=== PATIENT | male | born 1995 | race Caucasian/White ===

== ENCOUNTER 2020-01-03 22:01 | Emergency (ER) | payer BC ==
[2020-01-03 22:08] VITALS: TEMP 98.2; BMI 23.0
--- NOTE | 2020-01-03 23:12 | PDOC ---
History of Present Illness - General Chief Complaint: Rectal Bleed Stated Complaint: rectal bleed Time Seen by Provider: 01/03/20 23:12 History Source: Patient Exam Limitations: No Limitations - History of Present Illness Initial Comments: 01/03/20 23:28 PCP: None HPI: 24M no sig PMH presenting with 2 weeks of BRBPR. Patient reports approximately 2 weeks of passing formed stool covered with bright red blood. Occurs 2-3 times daily for the past 2 weeks. Never had this before. Bright red blood in the stool. No history of STI. Denies fevers, chills, nausea, vomiting, abdominal or rectal pain, increasing frequency of episodes, weight loss, FHx of similar symptoms. No known bleeding disorders. No history of mouth ulcers / lesions. No prior episodes. No history of constipation. ROS otherwise negative. All: NKDA Meds: None PMH: Denies PSH: Denies Past History - Travel Traveled outside of the country in the last 30 days: No Close contact w/someone who was outside of country & ill: No - Past Medical History Allergies/Adverse Reactions: Allergies Allergy/AdvReac Type Severity Reaction Status Date / Time crab Allergy Verified 01/03/20 23:37 Fish Containing Products Allergy Verified 01/03/20 23:37 shrimp Allergy Verified 01/03/20 23:37 crayfish AdvReac Verified 01/03/20 23:37 seafood Allergy Uncoded 01/03/20 23:35 COPD: No - Psycho Social/Smoking Cessation Hx Smoking History: Never smoked Hx Alcohol Use: No Drug/Substance Use Hx: Yes (marijuana) Review of Systems - Review of Systems Able to Perform ROS?: Yes Is the patient limited Faroese proficient: Yes Constitutional: Yes: Weight Stable. No: Chills, Diaphoresis, Fever, Weakness HEENTM: No: Nose Congestion, Throat Pain Respiratory: No: Cough, Shortness of Breath Cardiac (ROS): No: Chest Pain, Edema, Irregular Heart Rate ABD/GI: Yes: See HPI, Blood Streaked Bowels, Rectal Bleeding. No: Abdominal Distended, Constipated, Diarrhea, Nausea, Poor Appetite, Poor Fluid Intake, Vomiting, Abdominal cramping : No: Burning, Dysuria, Frequency Musculoskeletal: No: Muscle Pain, Muscle Weakness Integumentary: No: Pallor, Pruritus, Rash Neurological: No: Headache, Numbness, Tingling, Weakness Psychiatric: No: Stressors, Change in Appetite Endocrine: No: Increased Thirst, Increased Urine Hematologic/Lymphatic: No: Anemia, Blood Clots, Easy Bleeding All Other Systems: Reviewed and Negative *Physical Exam - Vital Signs Last Vital Signs Temp Pulse Resp BP Pulse Ox 98.2 F 56 L 19 122/75 100 01/03/20 22:04 01/03/20 22:04 01/03/20 22:04 01/03/20 22:04 01/03/20 22:04 - Physical Exam 01/03/20 23:58 Vitals reviewed, AFVSS GEN: Well appearing, appears stated age, NAD, comfortable. AAOx3. HEENT: NCAT, EOMI, PERRL. Sclera anicteric, noninjected. No facial asymmetry. Moist mucous membranes. Normal voice. Trachea midline. CV: RRR, S1/S2, no murmurs / rubs / gallops appreciated. LUNG: CTAB, normal work of breathing. No wheezes, rales, rhonchi. No cough. Speaking full sentences. GI: Soft, NTND, +BS, no guarding, no rebound. No masses. Neg CVAT b/l. EXTREMITIES: 2+ distal pulses. No LE edema. No obvious deformities of all extremities. SKIN: Warm, dry, no rashes appreciated, non-jaundiced. PSYCH: Normal mood and affect. Cooperative and appropriate. NEURO: CN grossly intact. Moving all extremities well. Normal strength and sensation grossly. BABAK: Normal external rectum, no external hemorrhoids or fissures, normal rectal tone, enlarged/firm prostate apparent, brown stool without nidia blood ED Treatment Course - LABORATORY CBC & Chemistry Diagram: 01/03/20 23:50 01/03/20 23:50 Medical Decision Making - Medical Decision Making 01/03/20 23:29 24M no sig PMH presenting with 2 weeks of BRBPR. History notable for no infectious signs or pain, subacute course. Exam notable for stable vitals, no pallor, enlarged prostate on rectal exam without hemorrhoids. DDX: Dive rticulosis, IBD, internal hemorrhoid. - CBC, CMP, T&S, Coags - Large Bore IV - 1L NS 01/04/20 00:48 - Labs unremarkable, no anemia - FOBT negative Dispo: Home with GI follow-up Discharge - Discharge Information Problems reviewed: Yes Clinical Impression/Diagnosis: Rectal bleeding Condition: Stable Disposition: HOME - Admission No - Follow up/Referral Referrals: [facility] [place] [facility] [place] [Provider Group] Amanda Young MD [Staff Physician] - - Patient Discharge Instructions Patient Printed Discharge Instructions: DI for Rectal Bleeding Additional Instructions: You were seen and evaluated for GI bleeding. You do not need to take any special medications at this time. Please follow-up with GI first thing in the morning. Call Dr. Olvera at the provided number to arrange an appointment for later today. Return to the ED for any new or concerning symptoms. These may include but are not limited to: worsening bleeding, abdominal pain, lightheadedness or passing out. - Post Discharge Activity
[2020-01-03] MEDS ORDERED: SODIUM CHLORIDE 0.9% 500 ML INFUS.BAG IV ONE (23:27)
[2020-01-04 00:06] LABS: BASO % 0.6 % (0-2.0); EOS % 6.9 % (0-4.5); HEMATOCRIT 40.2 % (35.4-49); HEMOGLOBIN 13.9 GM/dL (11.7-16.9); MCH 31.6 pg (25.7-33.7); MCHC 34.7 g/dl (32.0-35.9); MEAN PLT VOLUME 7.3 fl (7.5-11.1); MONO % 7.5 % (3.8-10.2); PLATELET COUNT 215 K/MM3 (134-434); RBC 4.42 M/mm3 (4.00-5.60); RDW 12.5 % (11.9-15.9); WHITE BLOOD COUNT 7.1 K/mm3 (4.0-10.0)
--- NOTE | 2020-01-04 00:12 | PDOC ---
Attending Attestation - Resident Resident Name: Sahil Mcclain - ED Attending Attestation I have performed the following: I have examined & evaluated the patient, The case was reviewed & discussed with the resident, I agree w/resident's findings & plan, Exceptions are as noted - HPI HPI: 01/04/20 01:17 See resident HPI - Physicial Exam PE: 01/04/20 01:18 Agree with documented exam - Medical Decision Making 01/04/20 01:18 24M with 2 weeks of painless, blood streaked stool, not actively bleeding VS wnl Internal hemorrhoids? eval for anemia f/u labs, fobt dispo per clinical course dc w/ GI f/u Discharge - Discharge Information Problems reviewed: Yes Clinical Impression/Diagnosis: Rectal bleeding Condition: Stable Disposition: HOME - Follow up/Referral Referrals: [facility] – [place], [place] [facility] at [place] [Provider Group] Amanda Young MD [Staff Physician] - - Patient Discharge Instructions Patient Printed Discharge Instructions: DI for Rectal Bleeding Additional Instructions: You were seen and evaluated for GI bleeding. You do not need to take any special medications at this time. Please follow-up with GI first thing in the morning. Call Dr. Olvera at the provided number to arrange an appointment for later today. Return to the ED for any new or concerning symptoms. These may include but are not limited to: worsening bleeding, abdominal pain, lightheadedness or passing out. - Post Discharge Activity
[2020-01-04 00:23] LABS: INR 1.03 (0.83-1.09); PROTHROMBIN TIME (PATIENT) 12.1 SEC (9.7-13.0)
[2020-01-04 00:25] LABS: ACTIVATED PTT 34.3 SECONDS (25.2-36.5)
[2020-01-04 00:32] LABS: ALBUMIN 3.9 g/dl (3.4-5.0); BILIRUBIN,TOTAL 1.7 mg/dL (0.2-1); CALCIUM 8.6 mg/dL (8.5-10.1); CREATININE 0.9 mg/dL (0.55-1.3); TOT PROT 7.1 g/dl (6.4-8.2)
[2020-01-04 01:26] VITALS: BP 118/70; PULSE 59
== END 2020-01-04 01:20 | disposition home or self-care (01) ==
LOC: JER 22:01
DX: K62.5 Hemorrhage of anus and rectum (principal); N40.0 Benign prostatic hyperplasia without lower urinary tract symptoms; Z91.013 Allergy to seafood
CPT/HCPCS: 36415; 80053; 82272; 85025; 85610; 85730; 86850; 86900; 86901; 99284-25